=== PATIENT | female | born 1940 | race Caucasian/White ===

== ENCOUNTER 2017-01-11 11:04 | Inpatient (IN) | payer MEDICAID, MEDICARE ==
[2017-01-11 11:05] VITALS: BMI 29.7
--- NOTE | 2017-01-11 11:40 | ED PDOC ---
Arrival/HPI - General Chief Complaint: Back Pain Time Seen by Provider: 01/11/17 11:26 Historian: Patient, Family - History of Present Illness Narrative History of Present Illness (Text): 01/11/17 11:29 Pt is a 76 year old female, whose past medical history includes diabetes and hypertension, presents to the emergency department, accompanied by family, for complaints of left hip pain and chest discomfort. Family states the patient has been complaining of right hip pain for the past 2 weeks, for which she was seen by her PMD and given NSAID and a muscle relaxant. Patient has been taking the medication as directed by it brought her no relief and therefore the went to the PMD office again today. While at the PMDs office patient mention she feels a "uneasy" feeling in the chest and so PMD suggested the patient come to the emergency department for further evaluation. Patient denies any trauma, fever, chills, shortness of breath or other complaints at this time. Pt states it feels like something heavy is on her chest. PMD: Dr. Velásquez Welder Tack: Dr. Mcneal Time/Duration: Other Symptom Onset: Sudden Symptom Course: Unchanged Quality: Other (uneasiness in the heart) Severity Level: Severe (right hip pain) Activities at Onset: Light Context: Home Past Medical History - Provider Review Nursing Documentation Reviewed: Yes - Infectious Disease Hx of Infectious Diseases: None - Tetanus Immunization Tetanus Immunization: Unknown - Cardiac Hx Hypertension: Yes Hx Pacemaker: No - Neurological Hx Paralysis: No - Endocrine/Metabolic Hx Diabetes Mellitus Type 2: Yes - Hematological/Oncological Hx Blood Transfusions: No Hx Blood Transfusion Reaction: No - Musculoskeletal/Rheumatological Hx Musculoskeletal Disorders: Yes - Psychiatric Hx Emotional Abuse: No Hx Physical Abuse: No Hx Substance Use: No - Past Surgical History Past Surgical History: No Previous - Anesthesia Hx Anesthesia Reactions: No Hx Malignant Hyperthermia: No - Suicidal Assessment Feels Threatened In Home Enviroment: No Family/Social History - Physician Review Nursing Documentation Reviewed: Yes Family/Social History: Diabetes, CAD/[place] Smoking Status: Unknown If Ever Smoked Hx Alcohol Use: No Hx Substance Use: No Hx Substance Use Treatment: No Allergies/Home Meds Allergies/Adverse Reactions: Allergies Penicillins Allergy (Verified 01/11/17 11:26) RASH Home Medications: Home Meds Medication Instructions Recorded Confirmed Albuterol HFA [Ventolin HFA 90 0.09 mg IH DAILY 01/11/17 01/11/17 mcg/actuation (8 g)] Furosemide [Lasix] 40 mg PO DAILY 01/11/17 01/11/17 Ibuprofen [Motrin] 600 mg PO BID PRN 01/11/17 01/11/17 Insulin Lispro Mix 75/25 [humalog 18 units SC BID 01/11/17 01/11/17 Mix 75/25 75 U/Ml-25 U/Ml 10 Ml] Isosorbide Dinitrate 30 mg PO DAILY 01/11/17 01/11/17 Levalbuterol [Xopenex] 0.63 mg IH DAILY 01/11/17 01/11/17 Omeprazole 40 mg PO DAILY 01/11/17 01/11/17 Simvastatin 40 mg PO DAILY 01/11/17 01/11/17 hydrALAZINE [hydralazine 25 mg PO DAILY 01/11/17 01/11/17 Hydrochloride] tiZANidine [Zanaflex] 4 mg PO DAILY 01/11/17 01/11/17 Review of Systems - Physician Review All systems were reviewed & negative as marked: Yes - Review of Systems Constitutional: absent: Fevers Respiratory: absent: SOB Cardiovascular: Chest Pain Gastrointestinal: absent: Diarrhea, Vomiting Musculoskeletal: Other (lateral right side hip pain). absent: Back Pain Skin: absent: Rash Neurological: absent: Headache Physical Exam Vital Signs Reviewed: Yes Vital Signs Temp Pulse Resp BP Pulse Ox 01/11/17 15:06 63 17 140/68 96 01/11/17 13:03 47 L 18 103/55 L 95 01/11/17 11:20 98.8 F 72 16 209/79 H 97 Temperature: Afebrile Blood Pressure: Hypertensive Pulse: Regular Respiratory Rate: Normal Appearance: Positive for: Non-Toxic Pain Distress: Mild Mental Status: Positive for: Alert and Oriented X 3 - Systems Exam Head: Present: Atraumatic, Normocephalic Pupils: Present: PERRL Extroacular Muscles: Present: EOMI Conjunctiva: Present: Normal Mouth: Present: Moist Mucous Membranes Pharnyx: Present: Normal Nose (External): Present: Atraumatic Neck: Present: Normal Range of Motion Respiratory/Chest: Present: Clear to Auscultation, Good Air Exchange. No: Respiratory Distress, Accessory Muscle Use Cardiovascular: Present: Regular Rate and Rhythm, Normal S1, S2. No: Murmurs Abdomen: Present: Normal Bowel Sounds. No: Tenderness, Distention, Peritoneal Signs Upper Extremity: Present: Normal Inspection. No: Cyanosis, Edema Lower Extremity: Present: Normal Inspection, Tenderness (mild lateral right hip tenderness). No: Edema Neurological: Present: GCS=15, CN II-XII Intact, Speech Normal Skin: Present: Warm, Dry, Normal Color. No: Rashes Psychiatric: Present: Alert, Oriented x 3, Normal Insight, Normal Concentration Medical Decision Making ED Course and Treatment: 01/11/17 11:29 Impression: 76 year old female with right hip pain and chest pain. Differential Diagnosis included but are not limited to: fracture (less likely) , arthritis; cardiac chest pain Plan: -- EKG -- Chest X-ray -- Right Hip X-ray -- Pelvis X-ray -- Labs -- Urinalysis -- Aspirin, Morphine, Toradol -- Reassess and disposition Progress Notes: EKG: Ordered, reviewed, and independently interpreted the EKG. Rate : 72 BPM Rhythm : NSR Interpretation : No ST changes, no T-wave changes. 01/11/2017 14:20 Chest X-ray: Creator : Tanesha Boland MD COMPARISON: 10/13/2016 FINDINGS: LUNGS: The lungs are well inflated and clear. PLEURA: No significant pleural effusion identified. No pneumothorax apparent. CARDIOVASCULAR: Normal. OSSEOUS STRUCTURES: There are multilevel degenerative changes in the spine. VISUALIZED UPPER ABDOMEN: Normal. OTHER FINDINGS: None. IMPRESSION: No active pulmonary disease. Pt is still having hip pain despite 2 doses of morphine. Given hx of chest pain , will also admit for serial Robyn. Case d/w Dr. Staley--recommends admission ( observation) to his service and use Dr. Mcneal as the food service substitute. - Lab Interpretations Lab Results: 01/11/17 11:43 01/11/17 11:43 Lab Results 01/11/17 11:43: Sodium 137, Potassium 3.9, Chloride 100, Carbon Dioxide 26, Anion Gap 15, BUN 24 H, Creatinine 1.2, Est GFR ( Amer) 53, Est GFR (Non- Af Amer) 43, Random Glucose 198 H, Calcium 9.4, Magnesium 2.1, Total Bilirubin 0.9, AST 34, ALT 23, Alkaline Phosphatase 129, Lactate Dehydrogenase 502, Total Creatine Kinase 69, Troponin I < 0.01, NT-Pro-B Natriuret Pep 527 H, Total Protein 8.0, Albumin 4.2, Globulin 3.7, Albumin/Globulin Ratio 1.1 01/11/17 11:43: PT 10.3, INR 0.95, APTT 26.1 01/11/17 11:43: WBC 8.9 D, RBC 4.39, Hgb 11.2 L, Hct 35.7 L, MCV 81.3, MCH 25.5 , MCHC 31.4, RDW 14.2, Plt Count 221, MPV 10.5, Gran % 78.3 H, Lymph % (Auto) 17.9 L, [place] % (Auto) 3.4, Eos % (Auto) 0.3 L, Baso % (Auto) 0.1, Gran # 6.99 H , Lymph # 1.6, [place] # 0.3, Eos # 0.0, Baso # 0.01 I have reviewed the lab results: Yes - RAD Interpretation Radiology Orders: 01/11/17 11:27 Hip Right [HIP MIN 2V W/ PELVIS RT] [RAD] Stat 01/11/17 11:34 CHEST TWO VIEWS (PA/LAT) [RAD] Stat - EKG Interpretation Interpreted by ED Physician: Yes Type: 12 lead EKG - Medication Orders Current Medication Orders: Discontinued Medications Aspirin (Aspirin) 325 mg PO STAT STA Stop: 01/11/17 11:35 Last Admin: 01/11/17 11:50 Dose: 325 mg Ketorolac Tromethamine (Toradol) 15 mg IVP STAT STA Stop: 01/11/17 11:37 Last Admin: 01/11/17 11:51 Dose: 15 mg Re-Assess: [facility] Pain Assessment Document 01/11/17 12:51 ALA (Rec: 01/11/17 13:03 ALA [id number]) Pain Reassessment Is this a pain reassessment? Yes Sleep Is patient sleeping during reassessment? No Presence of Pain Presence of Pain Yes Pain Scale Used Pain Scale Used Numeric Lidocaine (Lidoderm) 1 ea TD STAT STA Stop: 01/11/17 15:10 Last Admin: 01/11/17 15:20 Dose: 1 ea Morphine Sulfate (Morphine) 5 mg IV STAT STA Stop: 01/11/17 11:36 Last Admin: 01/11/17 11:52 Dose: 5 mg Re-Assess: BENIGNO Pain Assessment Document 01/11/17 12:52 JANETH (Rec: 01/11/17 13:03 ALA [id number]) Pain Reassessment Is this a pain reassessment? Yes Sleep Is patient sleeping during reassessment? No Presence of Pain Presence of Pain Yes Pain Scale Used Pain Scale Used Numeric Morphine Sulfate (Morphine) 4 mg IV STAT STA Stop: 01/11/17 15:18 Last Admin: 01/11/17 15:21 Dose: 4 mg - Scribe Statement The provider has reviewed the documentation as recorded by the Scribe 01/11/2017 Marcela Russell training with Ani Araya Provider Scribe Attestation: All medical record entries made by the Scribe were at my direction and personally dictated by me. I have reviewed the chart and agree that the record accurately reflects my personal performance of the history, physical exam, medical decision making, and the department course for this patient. I have also personally directed, reviewed, and agree with the discharge instructions and disposition. Disposition/Present on Arrival - Present on Arrival Any Indicators Present on Arrival: No History of DVT/PE: No History of Uncontrolled Diabetes: No Urinary Catheter: No History of Decub. Ulcer: No History Surgical Site Infection Following: None - Disposition Have Diagnosis and Disposition been Completed?: Yes Diagnosis: Chest pain at rest, Hip pain, right Disposition: HOSPITALIZED Disposition Time: 16:33 Patient Plan: Observation Condition: FAIR Discharge Instructions (ExitCare): Chest Pain (ED) Referrals: Wendy Velásquez DO [Primary Care Provider] - Follow up with primary
[2017-01-11 11:59] LABS: BASO # 0.01 K/mm3 (0.0-2.0); BASO % 0.1 % (0.0-3.0); EOS % 0.3 % (1.5-5.0); GRAN # 6.99 (1.4-6.5); GRAN % 78.3 % (50.0-68.0); HEMOGLOBIN 11.2 gm/dL (12.0-16.0); LYMPH # 1.6 (1.2-3.4); LYMPH % 17.9 % (22.0-35.0); MEAN CELL VOLUME 81.3 fL (80.0-105.0); MEAN CORPUSCULAR HEMOGLOBIN 25.5 pg (25.0-35.0); MEAN CORPUSCULAR HGB CONC 31.4 g/dl (31.0-37.0); MEAN PLATELET VOLUME 10.5 fl (7.0-11.0); MONO # 0.3 (0.1-0.6); MONO % 3.4 % (1.0-6.0); PLATELET COUNT 221 10^3/uL (120.0-450.0); RBC 4.39 10^6/uL (3.5-6.1); RED CELL DISTRIBUTION WIDTH 14.2 % (11.5-14.5); WHITE BLOOD COUNT 8.9 10^3/ul (4.5-11.0)
[2017-01-11 12:06] LABS: INR 0.95 (0.93-1.08); PARTIAL THROMBOPLASTIN TIME 26.1 Seconds (23.7-30.8); PROTHROMBIN TIME 10.3 Seconds (9.9-11.8)
[2017-01-11 12:32] LABS: ALB/GLOB RATIO 1.1 (1.1-1.8); ALBUMIN 4.2 g/dL (3.0-4.8); ALT/SGPT 23 U/L (7-56); AST/SGOT 34 U/L (15-39); BLOOD UREA NITROGEN 24 mg/dL (7-21); CALCIUM 9.4 mg/dL (8.4-10.5); GFR AFRICAN-AMERICAN 53; GFR NON-AFRICAN AMERICAN 43; MAGNESIUM 2.1 mg/dL (1.7-2.2)
[2017-01-11 12:44] LABS: B-TYPE NATRIURETIC PEPTIDE 527 pg/mL (0-450); TROPONIN I < 0.01 ng/mL
--- NOTE | 2017-01-11 14:18 | RAD ---
HISTORY: c/o chest pain COMPARISON: 10/13/2016 TECHNIQUE: Chest PA and lateral FINDINGS: LUNGS: The lungs are well inflated and clear. PLEURA: No significant pleural effusion identified. No pneumothorax apparent. CARDIOVASCULAR: Normal. OSSEOUS STRUCTURES: There are multilevel degenerative changes in the spine. VISUALIZED UPPER ABDOMEN: Normal. OTHER FINDINGS: None. IMPRESSION: No active pulmonary disease.
--- NOTE | 2017-01-11 14:27 | RAD ---
PROCEDURE: Radiographs of the pelvis and right hip joint. HISTORY: c/o right hip pain x 2 weeks COMPARISON: None. FINDINGS: BONES: The pelvic ring is intact. There is no acute fracture or bone destruction. There is diffuse bone demineralization. There is mild degenerative osteoarthrosis in the hip joints. The sacroiliac joints are normal. OTHER FINDINGS: None. IMPRESSION: No acute displaced fracture or dislocation. Please note occult fractures cannot be excluded on plain radiographs. If there is a persistent clinical concern, an MRI of the hip may be performed for further evaluation.
[2017-01-11] MEDS ORDERED: Lidocaine 5% Patch TD STA (15:09)
[2017-01-11] MEDS ORDERED: Morphine 4 mg/ml ISec IV STA (15:17)
[2017-01-11] MEDS ORDERED: ISOSORBIDE DINITRATE 30 MG PO SCH (17:00)
[2017-01-11] MEDS ORDERED: Oxycodone/Acetaminophen 5/325 mg Tab PO PRN (19:48)
[2017-01-11] MEDS: Insulin Lispro (humaLOG) MIX 75/25(10 ml) SC SCH (20:15)
[2017-01-11] MEDS ORDERED: Non Formulary Medication (Simvastatin [Simvastatin] 40 MG) PO SCH (22:00)
[2017-01-12 07:53] LABS: TROPONIN I 0.02 ng/mL
--- NOTE | 2017-01-12 09:27 | CP.PCM.CON ---
History of Present Illness - History of Present Illness History of Present Illness: Reason for consultation: Cardiac Eval admitted with hip pain, Multiple pauses. 76 year old Obese femal e with pMhx non Obst CAD, T2 DM, HTN, Hyperlidemia, Arthritis COPD admitted with non remitting Right Hip pain,in telmetry multiple pauses longest being 3.24 was on Metoprolol.. asymtmatic in tele. PMHX. arthritis, COPD, T2 DM Obesity, Hyperlipidemia non obstCAD. Previous cardiac W/U... Cath04/25/2014 Non Obst CAD. EF65%, EDP-2024 Stress test.... 01/01/2016. Lexiscan.. Normal scan. No changwe from 03/22/2014. Review of Systems - Review of Systems Systems not reviewed;Unavailable: Acuity of Condition - Constitutional Constitutional: As Per HPI - EENT Eyes: As Per HPI Nose/Mouth/Throat: As Per HPI - Breasts Breasts: As Per HPI - Cardiovascular Cardiovascular: As Per HPI - Respiratory Respiratory: As Per HPI - Gastrointestinal Gastrointestinal: As Per HPI - Musculoskeletal Musculoskeletal: Limited Range of Motion, Stiffness Additional comments: severe pain in right Hip. Past Patient History - Infectious Disease Hx of Infectious Diseases: None - Tetanus Immunizations Tetanus Immunization: Unknown - Past Social History Smoking Status: Never Smoked - CARDIAC Hx Hypertension: Yes Hx Pacemaker: No - NEUROLOGICAL Hx Paralysis: No - ENDOCRINE/METABOLIC Hx Diabetes Mellitus Type 2: Yes - HEMATOLOGICAL/ONCOLOGICAL Hx Blood Transfusions: No Hx Blood Transfusion Reaction: No - MUSCULOSKELETAL/RHEUMATOLOGICAL Hx Musculoskeletal Disorders: Yes Hx Falls: No - PSYCHIATRIC Hx Emotional Abuse: No Hx Physical Abuse: No Hx Substance Use: No - SURGICAL HISTORY Hx Surgeries: Yes - ANESTHESIA Hx Anesthesia Reactions: No Hx Malignant Hyperthermia: No Meds Allergies/Adverse Reactions: Allergies Allergy/AdvReac Type Severity Reaction Status Date / Time Penicillins Allergy RASH Verified 01/11/17 11:26 - Medications Medications: Current Medications Acetaminophen (Tylenol 325mg Tab) 650 mg PO Q4H PRN PRN Reason: Pain, Mild (1-3) Atorvastatin Calcium (Lipitor) 20 mg PO HS NORMA Last Admin: 01/11/17 21:26 Dose: Not Given Furosemide (Lasix) 40 mg PO DAILY NORMA Last Admin: 01/11/17 17:36 Dose: Not Given Insulin Lispro Protam/Lispro Human (Humalog Mix 75/25) 18 units SC BID [facility] Last Admin: 01/11/17 20:15 Dose: Not Given Isosorbide Mononitrate (Imdur) 30 mg PO DAILY [facility] Metoprolol Tartrate (Lopressor) 25 mg PO Q12 [facility] Ondansetron HCl (Zofran Inj) 4 mg IVP Q4H PRN PRN Reason: Nausea/Vomiting Last Admin: 01/11/17 22:59 Dose: 4 mg Oxycodone/Acetaminophen (Percocet 5/325 Mg Tab) 1 tab PO Q4H PRN PRN Reason: Pain, moderate (4-7) Stop: 01/14/17 19:49 Physical Exam - Constitutional Appears: Well - Head Exam Head Exam: ATRAUMATIC - Eye Exam Eye Exam: Conjunctival injection - ENT Exam ENT Exam: Mucous Membranes Dry - Neck Exam Neck exam: Positive for: Full Rom - Respiratory Exam Respiratory Exam: Clear to Auscultation Bilateral - Cardiovascular Exam Cardiovascular Exam: REGULAR RHYTHM - Extremities Exam Additional comments: pain andtenderness in right Hip, and restricted movement. Results - Vital Signs Recent Vital Signs: Last Vital Signs Temp 98.5 F 01/12/17 06:00 Pulse 65 01/12/17 06:00 Resp 20 01/12/17 06:00 BP 165/82 H 01/12/17 06:00 Pulse Ox 95 01/12/17 06:00 - Labs Result Diagrams: 01/11/17 11:43 01/11/17 11:43 Labs: Laboratory Results - last 24 hr 01/11/17 01/12/17 01/12/17 20:11 07:00 07:05 POC Glucose (mg/dL) 154 H Troponin I 0.02 D Triglycerides 136 Cholesterol 147 LDL Cholesterol Direct 84 HDL Cholesterol 35 TSH 3rd Generation 1.60 01/12/17 07:19 POC Glucose (mg/dL) 140 H Troponin I Triglycerides Cholesterol LDL Cholesterol Direct HDL Cholesterol TSH 3rd Generation - EKG Data EKG comments: NSR no acute St t changes telemetry ...NSR with pauses ..longest being 3.24 seconds. Assessment & Plan - Assessment and Plan (Free Text) Assessment: Multiple pause longest being 3.24.... asymtomatic. on betablocker. right Hip pain. T2DM HTN Hyperlipedmia COPD Obesity NOn Obst CAD..by Cath 04/25/2014 Recent Negative stress test... 01/01/2016.. Lexiscan. Plan: Hold beta nissa , observe for 24 hours to wear the effect of Beta nissa, asymtomatic, colud be ppt by vagal effect as pt was having nausea also. Ct Scan of Hip in Process echo to assess LV FX add troponin, TSH, Lipd, HBA1c thx, will f/u - Date & Time Date: 01/12/17 Time: 07:30
[2017-01-12] MEDS: Insulin Lispro (humaLOG) MIX 75/25(10 ml) SC SCH ×2 (10:06→17:13)
--- NOTE | 2017-01-12 11:08 | CT ---
PROCEDURE: CT of the right hip without contrast HISTORY: right hip pain COMPARISON: TECHNIQUE: CT of the right hip was performed in the axial plane with sagittal and coronal reconstructions FINDINGS: There is no evidence of hip fracture. There are no significant degenerative changes. There is no soft tissue or muscular abnormality. IMPRESSION: Negative study
--- NOTE | 2017-01-12 16:46 | CARD ---
APPROVED REPORT EKG Measurement Heart [id number] <Conclusion> Normal sinus rhythm Normal ECG
--- NOTE | 2017-01-12 18:20 | CARD ---
APPROVED REPORT EXAM: Two-dimensional and M-mode echocardiogram with Doppler and color Doppler. INDICATION Chest Pain 2D DIMENSIONS Left Atrium (2D)3.7 (1.6-4.0cm)IVSd1.1 (0.7-1.1cm) LVDd3.6 (3.9-5.9cm)PWd1.3 (0.7-1.1cm) LVDs2.4 (2.5-4.0cm)FS (%) 32.9 % LVEF (%)62.3 (>50%) M-Mode DIMENSIONS Aortic Root2.20 (2.2-3.7cm)Aortic Cusp Exc.1.40 (1.5-2.0cm) Aortic Valve AoV Peak Gmoernbz071.0cm/Bren Peak GR.13mmHg Mitral Valve MV E Mwrtbocl135.0cm/sMV A Pdcbisao05.0cm/sE/A ratio1.4 TDI E/Lateral E'0.0E/Medial E'0.0 Tricuspid Valve TR Peak [id number]/sRAP [id number] Peak Gr.11mmHg [id number] LEFT VENTRICLE The left ventricle is normal size. There is normal left ventricular wall thickness. The left ventricular function is normal.EF-60-65% There is normal LV segmental wall motion. Transmitral Doppler flow pattern is Grade II-pseudonormal filling dynamics. No left ventricle thrombus noted on this study. There is no ventricular septal defect visualized. There is no left ventricular aneurysm. There is no mass noted in the left ventricle. RIGHT VENTRICLE The right ventricle is normal size. There is normal right ventricular wall thickness. The right ventricular systolic function is normal. ATRIA The left atrium size is normal. The right atrium size is normal. The interatrial septum is intact with no evidence for an atrial septal defect. AORTIC VALVE The aortic valve is calcified and displays decreased opening. There is trace aortic regurgitation. Aortic Sclerosis Vs Mild There is no aortic valvular vegetation. MITRAL VALVE The mitral valve is thickened but opens well. Mitral regurgitation is trace. There is no mitral valve stenosis. There is no evidence of mitral valve prolapse. TRICUSPID VALVE The tricuspid valve leaflets are thickened , but open well. There is trace to mild tricuspid regurgitation.RBVSP-21 mmof Hg. There is no tricuspid valve stenosis. There is no tricuspid valve prolapse or vegetation. PULMONIC VALVE The pulmonic valve is mildly thickened. There is trace pulmonic valvular regurgitation. There is no pulmonic valvular stenosis. GREAT VESSELS The aortic root is normal in size. The ascending aorta is normal in size. The pulmonary artery is normal. The IVC is normal in size and collapses >50% with inspiration. PERICARDIAL EFFUSION There is no pleural effusion. There is no pericardial effusion. <Conclusion> The left ventricle is normal size. There is normal left ventricular wall thickness. The left ventricular function is normal.EF-60-65% There is trace aortic regurgitation. Aortic Sclerosis Vs Mild Mitral regurgitation is trace. There is trace to mild tricuspid regurgitation.RBVSP-21 mmof Hg. The IVC is normal in size and collapses >50% with inspiration. There is no pericardial effusion.
[2017-01-13] MEDS ORDERED: Vancomycin 500 mg Inj ONE (10:52)
[2017-01-13] MEDS: Insulin Lispro (humaLOG) MIX 75/25(10 ml) SC SCH ×2 (10:59→17:16)
[2017-01-13] MEDS ORDERED: Lidocaine 2% Inj (20ml) ONE (11:09)
[2017-01-13] MEDS ORDERED: Midazolam 2 MG/2 ML VIAL ONE (11:32)
[2017-01-13] MEDS ORDERED: Flumazenil 0.1 mg/ml Inj (5ml) IVP ONE (12:01)
[2017-01-13] MEDS ORDERED: Sodium Chloride 0.9% 1,000 ML IV SCH (12:45)
--- NOTE | 2017-01-13 13:16 | RAD ---
HISTORY: Post Pacemaker COMPARISON: 01/11/2017 FINDINGS: LUNGS: No active pulmonary disease. PLEURA: No significant pleural effusion identified, no pneumothorax apparent. CARDIOVASCULAR: New permanent pacemaker. OSSEOUS STRUCTURES: No significant abnormalities. VISUALIZED UPPER ABDOMEN: Normal. OTHER FINDINGS: None. IMPRESSION: Permanent pacemaker. No infiltrate.
--- NOTE | 2017-01-13 14:02 | CARD ---
APPROVED REPORT HISTORY The Patient is a 76 year-old female with a history of HTN admitted with arthritis of right Hip having multiple pauses in Tele 3-4 seconds PROCEDURES Insertion Single Chamber Ventricle Pacemaker INDICATIONS SSS tach bradd syndrome Multiple pauses CONSCIOUS SEDATION AGENTS Versed Fentanyl IMPLANTED DEVICES Medtronic SENSIA SR IS-1 OPERATIVE NOTE The patient was brought to the Cardiac Catheterization Laboratory in a fasting state and was prepped and draped in a sterile manner. The left subclavian region was infiltrated with 2% Lidocaine, subcutaneous anesthesia. A transverse incision was made in the left subclavicular area. The subcutaneous pocket was formed via blunt dissection, Percutaneous venous access was achieved and an introducer sheath was inserted into the Lt Subclavian vein. Through the introducer sheath, the ventricular lead wire was postitioned in the right ventricular apex utilizing fluoroscopic guidance. The ventricular was advanced over the wire under fluoroscopic guidance and positioned in the right ventricle. Capturing and sensing thresholds were verified. THE VENTRICULAR ELECTRODE PARAMETERS R WAVE 9.1 THRESHOLD0.5 RESISTANCE 803 The ventricular lead was then secured using 2.0 Silk. The subcutaneous pocket was irrigated with Betadine. The ventricular lead was attached to the appropriate receptacle on the pulse generator and set screws firmly tightened to insure adequate contact and stability. The lead and pulse generator were placed into the subcutaneous pocket. Sharp and sponge counts were confirmed to be correct. At this time the pocket was closed subcutaneously with a Vicryl 2.0 and the skin was closed with a Vicryl 4.0 .The operative site was dressed in sterile fashion. The patient tolerated the procedure well and was transferred to the floor in stable condition. COMPLICATIONS The patient tolerated the procedure well and there were no complications associated with the procedure. CONCLUSION Successful Implantation of permanent PPM, VVIR ( medtronic, SENSIA SR IS). Arrangement has been made to F/ u in PPM clinic q 6 months. CC; Drs. Wendy Velásquez / Dameon sanchez.
--- NOTE | 2017-01-13 14:21 | CARD ---
APPROVED REPORT EKG Measurement Heart [id number] NV [id number] <Conclusion> Normal sinus rhythm Normal ECG
--- NOTE | 2017-01-13 19:07 | CP.PCM.HP ---
History of Present Illness - History of Present Illness History of Present Illness: Pt came to the hospital for R hip pain and also chest discomfort. She denies any SOB/N/V/GOVEA/diarrhea. She does not have a hx of cardiac issues. Eats ok. Does not walk much due to her hip pain. She has been seeing Dr Cedillo for her pain and evaluation. Present on Admission - Present on Admission Any Indicators Present on Admission: No Review of Systems - Constitutional Constitutional: absent: Anorexia, Lethargy, Malaise - EENT Eyes: absent: Blurred Vision, Diplopia, Pain Nose/Mouth/Throat: absent: Dry Mouth, Dysphagia - Cardiovascular Cardiovascular: absent: Edema, Leg Edema, Leg Ulcers - Respiratory Respiratory: absent: Snoring, Stridor - Gastrointestinal Gastrointestinal: absent: Constipation, Cramping, Diarrhea, Dyspepsia, Dysphagia - Musculoskeletal Musculoskeletal: Abnormal Gait, Arthralgias - Psychiatric Psychiatric: absent: Confusion, Hallucinations, Hopelessness Past Patient History - Infectious Disease Hx of Infectious Diseases: None - Tetanus Immunizations Tetanus Immunization: Unknown - Past Social History Smoking Status: Never Smoked - CARDIAC Hx Hypertension: Yes Hx Pacemaker: No - NEUROLOGICAL Hx Paralysis: No - ENDOCRINE/METABOLIC Hx Diabetes Mellitus Type 2: Yes - HEMATOLOGICAL/ONCOLOGICAL Hx Blood Transfusions: No Hx Blood Transfusion Reaction: No - MUSCULOSKELETAL/RHEUMATOLOGICAL Hx Musculoskeletal Disorders: Yes Hx Falls: No - PSYCHIATRIC Hx Emotional Abuse: No Hx Physical Abuse: No Hx Substance Use: No - SURGICAL HISTORY Hx Surgeries: Yes - ANESTHESIA Hx Anesthesia Reactions: No Hx Malignant Hyperthermia: No Meds Allergies/Adverse Reactions: Allergies Allergy/AdvReac Type Severity Reaction Status Date / Time Penicillins Allergy RASH Verified 01/11/17 11:26 Physical Exam - Head Exam Head Exam: NORMAL INSPECTION, NORMOCEPHALIC - Eye Exam Eye Exam: EOMI, Normal appearance, PERRL Pupil Exam: NORMAL ACCOMODATION, PERRL - ENT Exam ENT Exam: Mucous Membranes Moist - Neck Exam Neck exam: Positive for: Full Rom, Normal Inspection - Respiratory Exam Respiratory Exam: Clear to Auscultation Bilateral, NORMAL BREATHING PATTERN. absent: Rales, Rhonchi, Wheezes - GI/Abdominal Exam GI & Abdominal Exam: Normal Bowel Sounds, Soft. absent: Pulsatile Mass, Tenderness - Back Exam Back exam: NORMAL INSPECTION - Neurological Exam Neurological exam: Alert, CN II-XII Intact, Normal Gait, Oriented x3, Reflexes Normal - Skin Skin Exam: Dry, Intact, Normal Color, Warm Results - Vital Signs Recent Vital Signs: Last Vital Signs Temp 99 F 01/12/17 12:00 Pulse 64 01/12/17 14:00 Resp 20 01/12/17 12:00 BP 170/88 H 01/12/17 12:00 Pulse Ox 95 01/12/17 06:00 - Labs Result Diagrams: 01/11/17 11:43 01/11/17 11:43 Labs: Laboratory Results - last 24 hr 01/11/17 01/12/17 01/12/17 20:11 07:00 07:00 POC Glucose (mg/dL) 154 H Hemoglobin A1c 9.8 H Troponin I Triglycerides Cholesterol LDL Cholesterol Direct HDL Cholesterol TSH 3rd Generation 1.60 01/12/17 01/12/17 01/12/17 07:05 07:19 11:19 POC Glucose (mg/dL) 140 H 177 H Hemoglobin A1c Troponin I 0.02 D Triglycerides 136 Cholesterol 147 LDL Cholesterol Direct 84 HDL Cholesterol 35 TSH 3rd Generation 01/12/17 15:57 POC Glucose (mg/dL) 209 H Hemoglobin A1c Troponin I Triglycerides Cholesterol LDL Cholesterol Direct HDL Cholesterol TSH 3rd Generation Assessment & Plan - Assessment and Plan (Free Text) Assessment: Chest pain R hip pain DM-2 HTN Gait Dysfunction Plan: Admit to hospital. Tele monitoring. Dr Gross evaluation. Insulin for her DM-2. Spoke to daughter at bedside.
[2017-01-14 06:29] VITALS: O2SAT 97
[2017-01-14 06:32] LABS: BASO # 0.01 K/mm3 (0.0-2.0); BASO % 0.1 % (0.0-3.0); EOS # 0.1 (0.0-0.7); EOS % 1.1 % (1.5-5.0); GRAN % 54.9 % (50.0-68.0); LYMPH # 3.2 (1.2-3.4); LYMPH % 36.2 % (22.0-35.0); MEAN CELL VOLUME 81.4 fL (80.0-105.0); MEAN CORPUSCULAR HEMOGLOBIN 26.2 pg (25.0-35.0); MEAN CORPUSCULAR HGB CONC 32.2 g/dl (31.0-37.0); MEAN PLATELET VOLUME 10.2 fl (7.0-11.0); MONO # 0.7 (0.1-0.6); MONO % 7.7 % (1.0-6.0); PLATELET COUNT 205 10^3/uL (120.0-450.0); RBC 4.58 10^6/uL (3.5-6.1); RED CELL DISTRIBUTION WIDTH 14.1 % (11.5-14.5); WHITE BLOOD COUNT 8.7 10^3/ul (4.5-11.0)
[2017-01-14 06:43] LABS: ALBUMIN 3.7 g/dL (3.0-4.8); ALT/SGPT 25 U/L (7-56); AST/SGOT 27 U/L (15-39); BLOOD UREA NITROGEN 19 mg/dL (7-21); CALCIUM 9.2 mg/dL (8.4-10.5); GFR AFRICAN-AMERICAN > 60; GFR NON-AFRICAN AMERICAN 54; MAGNESIUM 1.6 mg/dL (1.7-2.2)
[2017-01-14] MEDS ORDERED: Potassium Chloride 20 mEq ER Tab PO ONE (07:35)
[2017-01-14] MEDS ORDERED: POLYETHYLENE GLYCOL 3350 17 GM/Dose PACKET PO ONE (08:53)
--- NOTE | 2017-01-14 09:16 | PN ---
DATE: 01/13/2017 REASON FOR CONSULTATION: Followup on multiple pauses of bradycardia, cardiac evaluation. BRIEF CLINICAL HISTORY: This is a 76-year-old obese male with past medical history significant for hypertension, nonobstructive coronary artery disease status post cardiac catheterization, diabetes, hypertension, hyperlipidemia, and pain in right hip, who was admitted and found to have multiple pauses, longest being 3.24 second pause yesterday after the patient had an episode of asystole with pauses more than 3.3 seconds, though the patient was lying on the bed and is asymptomatic. I discussed with the patient's son yesterday and this morning with [id number] and grandson about implantation of pacemaker. The patient's family agreed. PHYSICAL EXAMINATION: VITAL SIGNS: Temperature afebrile, heart rate 80, blood pressure 152/74. HEENT: PERRLA. Extraocular muscles are intact. NECK: Supple. No thyromegaly. CHEST: Clear to auscultation. HEART: S1, S2 regular. ABDOMEN: Soft. EXTREMITIES: Clubbing or cyanosis negative. LABORATORY DATA: Blood workup as follows: WBC 8.9, hemoglobin 11.8, hematocrit 35.7, and platelet count 221. Chemistry shows sodium 137, potassium 3.9, chloride 100,Co2-24, BUN 24, creatinine 1.2. Troponin 0.01. Triglycerides 136, cholesterol 147, LDL 84, HDL 35, and TSH 1.6. IMPRESSION: Sick sinus syndrome and tachybrady syndrome. Chart also reviewed in Dr. Mcneal's office. The patient had a Holter monitor that shows 2.4 second pause. The patient is not on beta-nissa. While the patient is off of beta-nissa, has still multiple pauses in office, the longest being 2.4 second and at that time pacemaker was not warranted, but now the patient had multiple pauses, longest being 3.3 and 3.4 second, so in view of the above, pacemaker is planned this afternoon and discussed with the family. The family again will proceed for implantation of permanent pacemaker. Further recommendation of the pacemaker will follow with you. Thank you Dr. Staley for taking care of patient. Estevan Gross MD ZAKI
[2017-01-14] MEDS: Insulin Lispro (humaLOG) MIX 75/25(10 ml) SC SCH ×2 (09:38→17:02)
[2017-01-14 12:04] VITALS: RESP 20; TEMP 98
--- NOTE | 2017-01-14 12:05 | RAD ---
HISTORY: F/U S/p PPM , R/o pneumothorax COMPARISON: 01/13/2017 TECHNIQUE: Chest PA and lateral FINDINGS: LUNGS: No active pulmonary disease. PLEURA: No significant pleural effusion identified. No pneumothorax apparent. CARDIOVASCULAR: Normal. OSSEOUS STRUCTURES: No significant abnormalities. VISUALIZED UPPER ABDOMEN: Normal. OTHER FINDINGS: Single lead pacemaker IMPRESSION: No active disease.
--- NOTE | 2017-01-15 10:56 | PN ---
The patient has no complaints of any chest pain; no shortness of breath. She did have episodes of pauses on telemetry monitoring yesterday. PHYSICAL EXAMINATION VITAL SIGNS: Temperature is 97, pulse of 81, blood pressure 158/74, respirations 20. . HEENT: Anicteric sclerae. Moist mucosa. NECK: No JVD. No adenopathy. No bruits. CARDIOVASCULAR: S1 and S2 regular. No murmurs. RESPIRATIONS: Clear. Good bilateral air entry. No wheezes or rales. ABDOMEN: Bowel sounds are positive; soft; nontender. EXTREMITIES: Lower extremities, no edema. ASSESSMENT: 1. Pause on telemetry monitoring. 2. Right hip pain. 3. PENICILLIN ALLERGY. 4. Osteoarthritis. 5. Dyslipidemia. 6. Diabetes type 2. PLAN: The patient had a pause of 3.2, which is a longest pause. The patient has been on metoprolol, this was discontinued. She is on Lasix. She is going to continue on Lipitor for dyslipidemia. She is receiving her insulin. She is going to have a pacemaker placed today by Dr. Gross. I did speak to Dr. Gross about the patient. Also spoke with the patient's daughter and grandson. She was seeing Dr. Cedillo as an outpatient, but he does not come to this hospital. I advised them that I can get a different orthopedic doctor, but they prefer to follow Dr. Cedillo. Memo Staley MD
--- NOTE | 2017-01-15 11:30 | PN ---
DATE: 01/13/2017 REASON FOR THE CONSULTATION: Bradycardia, multiple pauses and sinus shukri. BRIEF CLINICAL HISTORY: This is a 76-year-old obese female with a past medical history significant for hypertension, arthritis history of nonobstructive coronary artery disease, status post cardiac catheterization, admitted with a right hip pain, found to be significant bradycardic with multiple pauses, longest being 3 to 4 seconds, multiple pauses. Yesterday, the patient underwent implantation of single chamber VVI. Denies any chest pain, shortness of breath or any palpitations. PHYSICAL EXAMINATION: VITAL SIGNS: Temperature *------*, heart rate 72, blood pressure 189/79. HEENT: PERRLA, extraocular muscles intact. NECK: Supple. No carotid bruits or thyromegaly. CARDIOPULMONARY: Heart S1 and S2 regular. CHEST: Clear to auscultation. ABDOMEN: Soft. EXTREMITIES: Clubbing and cyanosis negative. LABORATORY DATA: Blood workup as follows; WBC 8.7, hemoglobin 12, hematocrit 37.3, platelet count 205. Chemistry shows sodium 140, potassium 3.5, chloride 98, carbon dioxide 32, anion gap of 14, BUN 19, creatinine 1.0. IMPRESSION: Hypokalemia, obesity, hypertension, hyperlipidemia, sick sinus syndrome, tachy-shukri syndrome, status post permanent pacemaker, multiple pauses. RECOMMENDATION: Resume back previous medications. We will resume back again low dose of beta-nissa and put Norvasc 5 mg and put p.r.n. hydralazine. Possible discharge today, discussed with family, discussed with *------*. We will supplement potassium. Estevan Gross MD
[2017-01-15 11:54] VITALS: BP 163/79; PULSE 66
--- NOTE | 2017-01-15 11:59 | DS ---
HISTORY OF PRESENT ILLNESS: The patient was initially admitted to the hospital because of chest discomfort. Troponins were negative. She was found to have over 2 second pause on telemetry monitoring, so she was taken to the laboratory secretary for a pacemaker placement. She has not been significantly symptomatic most likely because she has not been walking due to her right hip pain. She has no complaints of any headaches, dizziness. She says right hip pain is her major issue that she has been following with Dr. Cedillo, but he does not come to the hospital. They are awaiting to see Dr. Mcmahan. PHYSICAL EXAMINATION: VITAL SIGNS: Temperature is 98, pulse is 70, blood pressure is 189/79, respirations 18 . HEENT: Atraumatic and normocephalic. EOMI. Anicteric sclerae. Moist mucosa. NECK: No JVD. Adenopathy, thyromegaly. ABDOMEN: Bowel sounds are positive. Soft, nontender, and nondistended. No hepatosplenomegaly. LUNGS: Clear to auscultation bilaterally. No rales or rhonchi. LOWER EXTREMITY: There is no edema. She is alert, awake and oriented. LABORATORY DATA: White count of 8.7, hemoglobin is 12, platelet is 1.0. ASSESSMENT: 1. Chest pain, resolved. 2. Bradycardia/pause status post pacemaker. 3. Right hip pain. 4. Diabetes type 2. 5. Hypertension. 6. Gait dysfunction. PLAN: The patient is currently comfortable. She is receiving insulin for diabetes. She is on her isosorbide. She is on Lipitor for dyslipidemia. She is receiving Percocet for pain. The patient is on aspirin. The patient is on carbohydrate consistent diet. I did speak to the patient's family member at the member side. After the patient seen by she can be discharged and did to discharge with . She is going to follow with ____, her primary care doctor in one week and Dr. Cedillo. DIET: . CONDITION: Stable. ACTIVITY: Increase as tolerated. Memo Staley MD cc: [facility] # [id number]
--- NOTE | 2017-01-17 10:19 | PN ---
DATE: 01/13/2017 REASON FOR CONSULTATION: Followup on multiple pauses of bradycardia, cardiac evaluation. BRIEF CLINICAL HISTORY: This is a 76-year-old obese male with past medical history significant for hypertension, nonobstructive coronary artery disease status post cardiac catheterization, diabetes, hypertension, hyperlipidemia, and pain in right hip, who was admitted and found to have multiple pauses, longest being 3.24 second pause yesterday after the patient had an episode of asystole with pauses more than 3.3 seconds, though the patient was lying on the bed and is asymptomatic. I discussed with the patient's son yesterday and this morning with [id number] and grandson about implantation of pacemaker. The patient's family agreed. PHYSICAL EXAMINATION: VITAL SIGNS: Temperature afebrile, heart rate 80, blood pressure 152/74. HEENT: PERRLA. Extraocular muscles are intact. NECK: Supple. No thyromegaly. CHEST: Clear to auscultation. HEART: S1, S2 regular. ABDOMEN: Soft. EXTREMITIES: Clubbing or cyanosis negative. LABORATORY DATA: Blood workup as follows: WBC 8.9, hemoglobin 11.8, hematocrit 35.7, and platelet count 221. Chemistry shows sodium 137, potassium 3.9, chloride 100, *------*, BUN 24, creatinine 1.2. Troponin 0.01. Triglycerides 136, cholesterol 147, LDL 84, HDL 35, and TSH 1.6. IMPRESSION: Sick sinus syndrome and tachybrady syndrome. Chart also reviewed in Dr. Mcneal's office. The patient had a Holter monitor that shows 2.4 second pause. The patient is not on beta-nissa. While the patient is off of beta-nissa, has still multiple pauses in office, the longest being 2.4 second and at that time pacemaker was not warranted, but now the patient had multiple pauses, longest being 3.3 and 3.4 second, so in view of the above, pacemaker is planned this afternoon and discussed with the family. The family again will proceed for implantation of permanent pacemaker. Further recommendation of the pacemaker will follow with you. Thank you *------* for taking care of patient. Estevan Gross MD
== END 2017-01-14 17:40 | disposition home or self-care (01) | DRG 116 ==
LOC: ED 11:04 → ERH 16:29 → 2RNO 18:12 → OBSVTOIN 01-13 09:48
PROVIDERS: ADMIT Internal Medicine Nephrology; ATTEND Internal Medicine Nephrology
PROC: 0JH605Z Insertion of Pacemaker, Single Chamber Rate Responsive into Chest Subcutaneous Tissue and Fascia, Open Approach (ICD-10-PCS; principal; 2017-01-13)
PROC: 02HK3JZ Insertion of Pacemaker Lead into Right Ventricle, Percutaneous Approach (ICD-10-PCS; 2017-01-13)
DX: I49.5 Sick sinus syndrome (principal); Z86.74 Personal history of sudden cardiac arrest; J44.9 Chronic obstructive pulmonary disease, unspecified; E87.6 Hypokalemia; M25.551 Pain in right hip; E11.9 Type 2 diabetes mellitus without complications; I10 Essential (primary) hypertension; R07.9 Chest pain, unspecified; R26.9 Unspecified abnormalities of gait and mobility; I25.10 Atherosclerotic heart disease of native coronary artery without angina pectoris; E66.9 Obesity, unspecified; E78.5 Hyperlipidemia, unspecified; M16.11 Unilateral primary osteoarthritis, right hip; Z79.899 Other long term (current) drug therapy; Z88.0 Allergy status to penicillin; Z95.0 Presence of cardiac pacemaker; R40.2412 Glasgow coma scale score 13-15, at arrival to emergency department; Z79.82 Long term (current) use of aspirin; Z68.24 Body mass index [BMI] 24.0-24.9, adult

== ENCOUNTER 2018-06-19 06:19 | Day surgery (SDC) | payer MEDICARE, MEDICAID ==
[2018-06-15 14:50] VITALS: BMI 26.4
--- NOTE | 2018-06-17 18:56 | HP ---
DATE OF EXAM: 06/17/2018 REASON FOR ADMISSION: Left heart catheterization, possible angioplasty, abnormal stress test, and chest pain. BRIEF CLINICAL HISTORY: This is a 77-year-old female with past medical history of diabetes, hypertension, hyperlipidemia, nonobstructive coronary artery disease, history of COPD, and hypertension, who was recently complaining of chest pain and the patient had a stress test which was abnormal, so the patient is scheduled for elective cardiac catheterization, possible angioplasty. PAST MEDICAL HISTORY: Significant for coronary artery disease, hypertension, diabetes, COPD, hyperlipidemia, history of pacemaker, history of cardiac catheterization in April 2014, nonobstructive coronary artery disease. RECENT CARDIAC WORKUP FOLLOWS: The patient had a cardiac catheterization on 04/25/2014 that shows nonobstructive coronary artery disease, ejection fraction 65%,Cardiac cath was done with left radial approach at that time and recommendations were made, aggressive medical treatment, lifestyle modification discussed, emphasized on weight reduction and on diuretics. The patient had a recent stress test dated 05/26/2018 because of the chest pain that was a Lexiscan done by Dr. Mcneal and that revealed probably abnormal myocardial perfusion study, partially reversible small apical defect suspicious for ischemia, normal gated wall motion, ejection fraction reported 65%. When comparison was made from 01/01/2016, the previous stress test, apical defect appears new, ejection fraction reported 65%. CURRENT MEDICATIONS: The patient is taking at home isosorbide dinitrate 30 mg daily, metformin 500 mg twice a day, insulin 5 units twice a day, hydralazine 25 mg twice a day, Lasix 40 mg daily, Ellipta 1 puff b.i.d., and Januvia as well as alogliptin 25 mg daily. ALLERGIES: PENICILLIN. REVIEW OF SYSTEMS: Negative except for HPI. PHYSICAL EXAMINATION VITAL SIGNS: Height of the patient 5 feet, weight of the patient 135 pounds, body mass index 26.4 kg/m2. Rest of the vital; heart rate 61 and blood pressure 100/80. HEENT: PERRLA. Extraocular muscles intact. NECK: Supple. No carotid bruit or thyromegaly. CHEST: Clear to auscultation. HEART: S1 and S2 regular. ABDOMEN: Soft. EXTREMITIES: Clubbing and cyanosis negative. LABORATORY DATA: Blood workup pending. IMPRESSION AND PLAN: A 77-year-old female with past medical history of diabetes, hypertension, and hyperlipidemia; in the past, previous catheterization, nonobstructive coronary artery disease, recent stress test abnormal, this is new since 2016. The patient is scheduled for elective cardiac catheterization and possible angioplasty. Risks, benefits and alternatives explained to the patient. The patient agreed to proceed for cardiac catheterization. We will review the lab when is available. Once the lab is available, we will proceed for cardiac catheterization. Estevan Gross MD cc: 1. Dr. Mcneal. 2. Dr. Wendy Velásquez. MTDD
[2018-06-19 06:58] VITALS: RESP 18; O2SAT 96
[2018-06-19 07:02] LABS: BASO # 0.01 K/mm3 (0.0-2.0); BASO % 0.1 % (0.0-3.0); EOS # 0.1 (0.0-0.7); EOS % 1.5 % (1.5-5.0); GRAN # 6.19 (1.4-6.5); GRAN % 65.4 % (50.0-68.0); HEMOGLOBIN 10.6 g/dL (12.0-16.0); INR 0.97; LYMPH # 2.6 (1.2-3.4); LYMPH % 27.9 % (22.0-35.0); MEAN CORPUSCULAR HEMOGLOBIN 24.7 pg (25.0-35.0); MEAN CORPUSCULAR HGB CONC 30.8 g/dl (31.0-37.0); MONO # 0.5 (0.1-0.6); MONO % 5.1 % (1.0-6.0); PARTIAL THROMBOPLASTIN TIME 32.9 Seconds (25.1-36.5); PROTHROMBIN TIME 11.2 SECONDS (9.4-12.5); RBC 4.3 10^6/uL (3.5-6.1); RED CELL DISTRIBUTION WIDTH 14.7 % (11.5-14.5); WHITE BLOOD COUNT 9.5 10^3/uL (4.5-11.0)
[2018-06-19 07:05] LABS: BLOOD UREA NITROGEN 30 mg/dL (7-21); CALCIUM 9.5 mg/dL (8.4-10.5); GFR NON-AFRICAN AMERICAN 53; HDL CHOLESTEROL 40 mg/dL (29-60)
[2018-06-19 07:15] LABS: LDL CHOLESTEROL 144 mg/dL (0-129)
[2018-06-19] MEDS ORDERED: Lidocaine 2% Inj (20ml) ONE (07:23)
[2018-06-19] MEDS ORDERED: Verapamil 2 ML ONE (07:23)
[2018-06-19] MEDS ORDERED: Nitroglycerin 50mg in D5W 50 MG/250 ML BOTTLE IV ONE (07:24)
[2018-06-19] MEDS ORDERED: Iodixanol 320 MG/ML 200 ML BOTTLE IV ONE (07:24)
[2018-06-19] MEDS ORDERED: Iodixanol 320 MG/ML 100 ML BOTTLE IV ONE (07:24)
[2018-06-19] MEDS ORDERED: Iohexol 350mgl/ml 50 ML ONE (07:24)
[2018-06-19] MEDS ORDERED: Midazolam 2 MG/2 ML VIAL ONE (07:51)
[2018-06-19] MEDS ORDERED: Eptifibatide 20 mg/10mL Inj IVP ONE (08:26)
--- NOTE | 2018-06-19 09:27 | CARD ---
APPROVED REPORT Date of service: 06/19/2018 EKG Measurement Heart [id number] <Conclusion> Normal sinus rhythm Nonspecific T wave abnormality and Prolonged QT, new
--- NOTE | 2018-06-19 09:48 | CPOSTOP ---
CARDIOVASCULAR LAB POSTPROCEDURE NOTE DATE: 06/19/2018 PHYSICIAN: Dr. Bayron Gross. IT PROGRAM ENGAGEMENT DIRECTOR: Bruna Monson, biomedical instrument technician. TYPE OF ANESTHESIA: Moderate conscious sedation. Total 1 mg of Versed and 50 of fentanyl given. PRE-PROCEDURE DIAGNOSES: Unstable angina and abnormal stress test.. PROCEDURE PERFORMED: 1. Left heart catheterization. 2. Stenting of left anterior descending proximal with drug eluting stent. FINDINGS: LAD 80% stenosis. FINAL DIAGNOSIS: Single vessel Critical disease. POST PROCEDURE CONDITION: The patient's condition is stable. VASCULAR ACCESS SITE: Right femoral artery. CLOSURE DEVICE: AngioSeal. TOTAL RADIATION DOSE: 7146.09 milligray unit. TOTAL FLUORO TIME: 7 minutes. Estevan Gross MD [id number]
[2018-06-19] MEDS ORDERED: Non Formulary Medication (Fluticasone/Vilanterol 100/25 [Breo Ellipta 100-25 Mcg Inh] 1 PU INH SCH (10:00)
--- NOTE | 2018-06-19 10:55 | CARD ---
APPROVED REPORT Date of service: 06/19/2018 EKG Measurement Heart [id number] <Conclusion> Normal sinus rhythm Nonspecific T wave abnormality Prolonged QT
[2018-06-19] MEDS ORDERED: Insulin Reg-MEDIUM-Coverage SC SCH (11:30)
[2018-06-19 12:49] LABS: BLOOD UREA NITROGEN 24 mg/dL (7-21); CALCIUM 8.6 mg/dL (8.4-10.5); GFR NON-AFRICAN AMERICAN > 60
[2018-06-19] MEDS ORDERED: Sodium Chloride 0.9% 1,000 ML IV SCH (13:00)
[2018-06-19 13:02] LABS: BASO # 0.01 K/mm3 (0.0-2.0); BASO % 0.1 % (0.0-3.0); EOS # 0.1 (0.0-0.7); EOS % 1.4 % (1.5-5.0); GRAN # 4.76 (1.4-6.5); GRAN % 56.2 % (50.0-68.0); HEMOGLOBIN 9.4 g/dL (12.0-16.0); LYMPH # 3.1 (1.2-3.4); LYMPH % 36.9 % (22.0-35.0); MEAN CELL VOLUME 80.3 fl (80.0-105.0); MEAN CORPUSCULAR HEMOGLOBIN 24.4 pg (25.0-35.0); MEAN CORPUSCULAR HGB CONC 30.3 g/dl (31.0-37.0); MEAN PLATELET VOLUME 9.8 fl (7.0-11.0); MONO # 0.5 (0.1-0.6); MONO % 5.4 % (1.0-6.0); RBC 3.86 10^6/uL (3.5-6.1); RED CELL DISTRIBUTION WIDTH 14.7 % (11.5-14.5); WHITE BLOOD COUNT 8.5 10^3/uL (4.5-11.0)
[2018-06-19 14:05] VITALS: TEMP 98
[2018-06-19 15:25] VITALS: PULSE 70
[2018-06-19 15:27] VITALS: BP 163/72
--- NOTE | 2018-06-19 18:21 | CARD ---
APPROVED REPORT Date of service: 06/19/2018 Procedure(s) performed: Left Heart Catheterization PTCA with Stenting of Proximal lAD with SCOTT HISTORY The patient is a 77 year-old female with a history of : previous AL (> 7 days), diabetes mellitus with oral treatment , chronic lung disease, previous diagnostic cath, hypertension , dyslipidemia , having chest pain and abnormal stress test , apical Ischemia. INDICATION The indication(s) include : positive stress test. CASE TECHNIQUE The patient was brought electively to the Cardiac Catheterization Laboratory in a fasting state and was prepped and draped in a sterile manner. The right femoral groin was infiltrated with 2% Lidocaine subcutaneous anesthesia. A 6FR GLIDESHEATH ACCESS KIT sheath was inserted into the right femoral artery without difficulty. Coronary angiography was performed using coronary diagnostic catheters. The left coronary system was accessed and visualized with a Diagnostic , 5F JL 4 CATH DXT 100 CM catheter. The right coronary system was accessed and visualized with a Diagnostic ,5F JR 4 CATH DXT 100 CM catheter. The left ventricle was accessed and visualized with a 5F PIGTAIL 145 CATH DXT 110 CM catheter. Left ventricular/Aortic Valve gradient assessed on pullback. Left ventriculogram was performed in CARTER projection. Closure device was deployed with a 6 Fr Angio-Seal without any complications. The patient tolerated the procedure well and there were no complications associated with the procedure. Vessel Analysis The patient's coronary anatomy is co-dominant. The left main coronary artery is a medium size vessel with diffuse calcification noted throughout this vessel and without significant stenosis. The left main trifurcates to the left anterior descending, circumflex, and ramus. The left anterior descending artery is a medium size vessel with diffuse calcification noted throughout this vessel and with significant stenosis. There is a 80% stenosis in the proximal segment. The first diagonal branch is a small size vessel with diffuse calcification noted throughout this vessel and without significant stenosis. The second diagonal branch is a small size vessel with diffuse calcification noted throughout this vessel and without significant stenosis. The third diagonal branch is a small size vessel with diffuse calcification noted throughout this vessel and without significant stenosis. The circumflex artery is a medium size vessel with diffuse calcification noted throughout this vessel and without significant stenosis. There is a 30% stenosis in the proximal segment. The first obtuse marginal branch is a small size vessel with diffuse calcification noted throughout this vessel and without significant stenosis. The second obtuse marginal branch is a small size vessel with diffuse calcification noted throughout this vessel and without significant stenosis. The left posterior descending artery is a medium size vessel with diffuse calcification noted throughout this vessel and without significant stenosis. The ramus intermedius artery is a medium size vessel with diffuse calcification noted throughout this vessel and without significant stenosis. There is a 50% stenosis in the proximal segment. The right coronary artery is a medium size vessel with diffuse calcification noted throughout this vessel and without significant stenosis. There is a 30% stenosis in the proximal segment. The right posterior descending artery is a small size vessel with diffuse calcification noted throughout this vessel and without significant stenosis. Left Ventricle The left ventricle is normal in size with normal contractility. There was no cardiomyopathy. The left ventricular ejection fraction is estimated to be 65%. The left ventricular end diastolic pressure is 18 mmHg. There was no gradient across the aortic valve upon pullback. PCI Technique Lesion Anticoagulation was achieved with Heparin and integrellin Two Bolluses. Percutaneous coronary intervention was performed on the proximal left anterior descending artery segment. The lesion stenosis prior to intervention was 80% with COLTON 2 flow. A 6 Fr JL 3.5 Guide Catheter was used to engage the ostium. A Luge 182 Interventional Guidewire was used to cross the lesion. BALLOON DILATION A Balloon catheter 2.5 x 6 mm Sprinter RX was inserted and inflated up to 13.00atm for 18seconds. STENT DEPLOYMENT A drug-eluting stent STENT RESOLUTE ALBINO 2.75 X15 was inserted and inflated up to 13.00atm for 18seconds. POST STENT DEPLOYMENT BALLOON DILATION A Balloon catheter 3.25 x 9 mm Sprinter NC was inserted and inflated up to 18.00atm for 22seconds. Final angiography reveals 0 % stenosis with COLTON 3 flow. Conclusion Critical one Vessel Diz. involving Proximal LAD 80%. Moderate Diz in Cx, ramus and RCA. Preserved LV Fx. EF-65%, EDP-18 mmof Hg. Successful PTCA with SCOTT of LAD. Recommendations Daily ASA with Plavix for at least one year Aggressive Medical TherapyCardiac Risk Reduction Program Add Lipitor 40 mg po in current regimen. CC; Drs. Bernardino Velásquez / Elizabet.
== END 2018-06-19 18:50 | disposition home or self-care (01) ==
LOC: CATH 06:19 → 2RSO 09:22 → CATH 18:50
PROVIDERS: ATTEND Internal Medicine Cardiovascular Disease
DX: I25.110 Atherosclerotic heart disease of native coronary artery with unstable angina pectoris (principal); E11.9 Type 2 diabetes mellitus without complications; I10 Essential (primary) hypertension; E78.5 Hyperlipidemia, unspecified; I25.2 Old myocardial infarction
CPT/HCPCS: 36415; 80048; 80061; 82948; 85025; 85175; 85610; 85730; 86850; 86900; 93005; 93458; 99152; 99153; C1725 ×2; C1760; C1769 ×2; C1874; C1887; C9600; J1327; J1644 ×2; J2250; J3010; J7030; Q9966; Q9967 ×2